=== PATIENT | female | born 1990 | race Caucasian/White ===

== ENCOUNTER 2022-04-19 12:59 | Inpatient (IN) | payer MEDICAID ==
[~2022-04-19] VITALS: Ht 154.9 cm; Wt 79.4 kg
[2022-04-19] MEDS ORDERED: TERBUTALINE SULFATE 1 MG/ML VIAL SUBCUT ONE (14:15)
[2022-04-19] MEDS ORDERED: NALBUPHINE HCL 10 MG/ML AMP IM PRN (14:15)
[2022-04-19] MEDS ORDERED: MISOPROSTOL 25 MCG (0.025 MG) *QUARTER TABLET VG SCH (15:00)
[2022-04-19 15:22] LABS: BASOPHILS # (AUTO) 0.1 K/uL (0.0-0.2); BASOPHILS % (AUTO) 1.4 % (0.0-2.0); EOSINOPHILS % (AUTO) 0.4 % (0.0-4.0); HEMATOCRIT 36.6 % (36-48); HEMOGLOBIN 12.5 g/dL (12.0-16.0); LYMPHOCYTES # (AUTO) 1.1 K/uL (1.0-5.5); LYMPHOCYTES % (AUTO) 15.6 % (20.5-51.5); MEAN CORPUSCULAR HEMOGLOBIN 32 pg (27-31); MEAN CORPUSCULAR HGB CONC 34 % (32-36); MEAN CORPUSCULAR VOLUME 93 fL (79.0-98.0); MONOCYTES # (AUTO) 0.4 K/uL (0.0-1.0); MONOCYTES % (AUTO) 5.1 % (1.7-9.3); NEUTROPHILS # (AUTO) 5.4 K/uL (1.8-7.7); NEUTROPHILS % (AUTO) 77.5 % (40.0-70.0); PLATELET COUNT (AUTO) 196 K/uL (130-430); RED BLOOD CELL COUNT(AUTO) 3.93 MIL/uL (4.2-6.2); RED CELL DISTRIBUTION WIDTH 13.8 % (9.0-15.0); WHITE BLOOD COUNT (AUTO) 6.9 K/uL (4.8-10.8)
[2022-04-19] MEDS: LR 1,000 ML IV SCH (15:50)
[2022-04-19 17:23] VITALS: BP_SYST 103
[2022-04-20] MEDS ORDERED: LIGHT MINERAL OIL 10 ML VIAL MC ONE (01:18)
[2022-04-20] MEDS ORDERED: LIDOCAINE PF 1% 30ML(POUR BTL) INJ ONE (01:18)
[2022-04-20] MEDS ORDERED: NALOXONE HCL 0.4 MG/ML AMP (NARCAN) ONE (01:19)
[2022-04-20] MEDS: NALBUPHINE HCL 10 MG/ML AMP IVP PRN ×2 (02:03→05:33)
[2022-04-20] MEDS: LR 1,000 ML IV SCH ×2 (02:30→05:39)
[2022-04-20] MEDS ORDERED: OXYTOCIN 10 UNIT/ML VIAL IM ONE (06:00)
[2022-04-20] MEDS ORDERED: OXYTOCIN/0.9 % SODIUM CHLORIDE 1,000 ML IV SCH (06:00)
[2022-04-20] MEDS ORDERED: METHYLERGONOVINE MALEATE 0.2 MG/ML AMP ONE (06:53)
[2022-04-20] MEDS ORDERED: LANOLIN 7 GM OINT. TP PRN (07:15)
[2022-04-20] MEDS ORDERED: HYDROcodone/ACETAMIN 5-325 MG TAB (NORCO/ VICODIN) PO PRN (07:15)
[2022-04-20] MEDS ORDERED: NALOXONE HCL 0.4 MG/ML AMP (NARCAN) IVP PRN (07:15)
[2022-04-20] MEDS ORDERED: OXYTOCIN/0.9 % SODIUM CHLORIDE 1,000 ML IV ONE (07:15)
[2022-04-20] MEDS ORDERED: METHYLERGONOVINE MALEATE 0.2 MG TABLET PO PRN (07:15)
[2022-04-20] MEDS ORDERED: OXYCODONE/ACETAMINOPHEN 5-325 TABLET PO PRN (07:15)
[2022-04-20] MEDS: OXYCODONE/ACETAMINOPHEN 5-325 TABLET PO PRN ×2 (08:33→22:13)
[2022-04-20] MEDS ORDERED: METHYLERGONOVINE MALEATE 0.2 MG/ML AMP IM ONE (08:45)
[2022-04-20] MEDS: DOCUSATE SODIUM 100 MG CAPSULE PO SCH (09:24)
[2022-04-20] MEDS: IBUPROFEN 600 MG TABLET PO SCH ×3 (12:05→23:49)
[2022-04-20] MEDS ORDERED: SENNOSIDES/DOCUSATE SODIUM 1 TAB TABLET(SENOKOT-S) PO SCH (21:00)
[2022-04-21] MEDS: IBUPROFEN 600 MG TABLET PO SCH (06:28)
[2022-04-21] MEDS: DOCUSATE SODIUM 100 MG CAPSULE PO SCH (08:15)
[2022-04-24 19:07] LABS: FTA-Ab (T PALLIDUM) Non Reactive (Non Reactive)
== END 2022-04-21 11:35 | disposition home or self-care (01) | DRG 560 ==
LOC: SPU 12:59
PROVIDERS: ADMIT Obstetrics & Gynecology; ATTEND Obstetrics & Gynecology
PROC: 10E0XZZ Delivery of Products of Conception, External Approach (ICD-10-PCS; principal; 2022-04-20)
DX: O44.00 Complete placenta previa NOS or without hemorrhage, unspecified trimester (principal); Z37.0 Single live birth; Z20.822 Contact with and (suspected) exposure to COVID-19; Z3A.40 40 weeks gestation of pregnancy
CPT/HCPCS: 36415; 81002; 85025; 86592; 86780; 86886; 86900; 86901; J2001; J2210; J2300; J2310; J2590